=== PATIENT | female | born 1975 | race Caucasian/White ===

== ENCOUNTER 2019-01-22 18:24 | Emergency (ER) | payer OTHER ==
--- NOTE | 2019-01-22 18:57 | ER Document Report ---
ED Medical Screen (RME) - General Chief Complaint: Abnormal Lab Results Stated Complaint: ABNORMAL LABS Time Seen by Provider: 01/22/19 18:56 Primary Care Provider: AUDRA MALDONADO [Primary Care Provider] - Follow up as needed Mode of Arrival: Ambulatory Information source: Patient Notes: 42-year-old female presented to ED for abnormal hemoglobin. She states she went to the [facility] on Friday for a abscess under her left arm. She states that she was started on antibiotics but the doctor told her she got seen look pale and ordered blood work. She states the blood work was done today and the doctor's office called her and told her to come right to the ED that her hemoglobin was low. Patient is alert oriented respirations regular and unlabored speaking in full sentences walks with even steady gait. She is mildly pale. I have greeted and performed a rapid initial assessment of this patient. A comprehensive ED assessment and evaluation of the patient, analysis of test results and completion of medical decision making process will be conducted by an additional ED providers. Dictation of this chart was performed using voice recognition software; therefore, there may be some unintended grammatical errors. TRAVEL OUTSIDE OF THE [place] IN LAST 30 DAYS: No - Related Data Allergies/Adverse Reactions: No Known Allergies Allergy (Verified 01/22/19 18:49) Past Medical History Pulmonary Medical History: Denies: Hx Tuberculosis Neurological Medical History: Denies: Hx Seizures Psychiatric Medical History: Reports: Hx Depression Past Surgical History: Denies: Hx Pacemaker Physical Exam - Vital signs Vitals: Temp Pulse Resp BP Pulse Ox 99.3 F 92 16 131/60 H 98 01/22/19 18:52 01/22/19 18:52 01/22/19 18:52 01/22/19 18:52 01/22/19 18:52 Course - Vital Signs Vital signs: Temp Pulse Resp BP Pulse Ox 99.3 F 92 16 131/60 H 98 01/22/19 18:52 01/22/19 18:52 01/22/19 18:52 01/22/19 18:52 01/22/19 18:52 Doctor's Discharge - Discharge Referrals: AUDRA MALDONADO [Primary Care Provider] - Follow up as needed
[2019-01-22 19:27] LABS: ABSOLUTE BASOPHILS # (AUTO) 0.1 10^3/uL (0.0-0.2); ABSOLUTE EOSINOPHILS # (AUTO) 0.2 10^3/uL (0.0-0.6); ABSOLUTE LYMPHOCYTES (AUTO) 2.8 10^3/uL (0.5-4.7); ABSOLUTE MONOCYTES (AUTO) 0.7 10^3/uL (0.1-1.4); ABSOLUTE NEUT (AUTO) 5.8 10^3/uL (1.7-8.2); BASOPHILS % (AUTO) 1.1 % (0-2); EOSINOPHILS % (AUTO) 2.4 % (0-6); HEMATOCRIT 23.2 % (36.0-47.0); LYMPHOCYTES % (AUTO) 29.5 % (13-45); MEAN CORPUSCULAR HEMOGLOBIN 17.7 pg (27.0-33.4); MEAN CORPUSCULAR HGB CONC 29.3 g/dL (32.0-36.0); MEAN CORPUSCULAR VOLUME 60 fl (80-97); MONOCYTES % (AUTO) 7.2 % (3-13); PLATELET COUNT 736 10^3/uL (150-450); RED BLOOD COUNT 3.84 10^6/uL (3.72-5.28); RED CELL DISTRIBUTION WIDTH 20.7 % (11.5-14.0); SEGMENTED NEUTROPHILS % (AUTO) 59.8 % (42-78); TOTAL CELLS COUNTED % (AUTO) 100 %; WHITE BLOOD COUNT 9.6 10^3/uL (4.0-10.5)
[2019-01-22 19:34] LABS: HEMOGLOBIN 6.8 g/dL (12.0-15.5)
[2019-01-22 19:36] LABS: PLATELET COMMENT INCREASED
[2019-01-22 19:43] LABS: HYPOCHROMASIA 2+; POLYCHROMASIA SLIGHT
[2019-01-22 19:44] LABS: ANISOCYTOSIS 2+; OVALOCYTES SLIGHT; SCHISTOCYTES SLIGHT
[2019-01-22 19:45] LABS: ALANINE AMINOTRANSFERASE 21 U/L (9-52); ALBUMIN 4.3 g/dL (3.5-5.0); ALKALINE PHOSPHATASE 65 U/L (38-126); ANION GAP 8 (5-19); ASPARTATE AMINO TRANSFERASE 19 U/L (14-36); BILIRUBIN,DIRECT 0.2 mg/dL (0.0-0.4); BILIRUBIN,TOTAL 0.2 mg/dL (0.2-1.3); BLOOD UREA NITROGEN 16 mg/dL (7-20); CALCIUM 9.6 mg/dL (8.4-10.2); CARBON DIOXIDE 27 mmol/L (22-30); CHLORIDE 103 mmol/L (98-107); GLUCOSE 86 mg/dL (75-110); SODIUM 138.4 mmol/L (137-145); TOTAL PROTEIN 7.3 g/dL (6.3-8.2)
[2019-01-22] MEDS ORDERED: NORMAL SALINE 250 ML IV PRN (23:39)
[2019-01-22] MEDS ORDERED: FERROUS SULFATE 325 MG TABLET PO ONE (23:40)
--- NOTE | 2019-01-22 23:47 | ER Document Report ---
ED General - General Chief Complaint: Abnormal Lab Results Stated Complaint: ABNORMAL LABS Time Seen by Provider: 01/22/19 18:56 Primary Care Provider: [facility] [Primary Care Provider] - Follow up as needed Mode of Arrival: Ambulatory Notes: Patient is a 43-year-old female without chronic medical problems, does have a history of dysfunctional uterine bleeding, presents with concerns of anemia. Was seen by her primary care physician yesterday, had labs completed due to conc erns of anemia. Hemoglobin came back at 6.8, the patient was contacted by clinic and instructed to come to the emergency department for transfusion. The patient states that for many months she has felt fatigued, has low energy but denies any other acute symptoms. No exacerbating or alleviating factors. Denies any chest pain or shortness of breath. States that she typically bleeds for greater than 1 week on her periods and that her periods are quite heavy. Does not take anything to regulate her cycle. She is actively having vaginal bleeding at this time. She has never been on iron supplementation in the past. TRAVEL OUTSIDE OF THE [place] IN LAST 30 DAYS: No - HPI Patient complains to provider of: Anemia Onset: Other Onset/Duration: Constant Quality of pain: No pain Severity: None Pain Level: Denies Associated symptoms: None Exacerbated by: Denies Relieved by: Denies Similar symptoms previously: Yes Recently seen / treated by doctor: Yes - Related Data Allergies/Adverse Reactions: No Known Allergies Allergy (Verified 01/22/19 18:49) Past Medical History - General Information source: Patient - Social History Smoking Status: Never Smoker Chew tobacco use (# tins/day): No Frequency of alcohol use: None Drug Abuse: None Lives with: Spouse/Significant other Family History: Reviewed & Not Pertinent Patient has suicidal ideation: No Patient has homicidal ideation: No Pulmonary Medical History: Denies: Hx Tuberculosis Neurological Medical History: Denies: Hx Seizures Renal/ Medical History: Denies: Hx Peritoneal Dialysis Psychiatric Medical History: Reports: Hx Depression Past Surgical History: Reports: Hx Cholecystectomy. Denies: Hx Pacemaker Review of Systems - Review of Systems Notes: Constitutional: Negative for fever. Positive for fatigue HENT: Negative for sore throat. Eyes: Negative for visual changes. Cardiovascular: Negative for chest pain. Respiratory: Negative for shortness of breath. Gastrointestinal: Negative for abdominal pain, vomiting or diarrhea. Genitourinary: Negative for dysuria. Musculoskeletal: Negative for back pain. Skin: Negative for rash. Neurological: Negative for headaches, weakness or numbness. 10 point ROS negative except as marked above and in HPI. Physical Exam - Vital signs Vitals: Temp Pulse Resp BP Pulse Ox 99.3 F 92 16 131/60 H 98 01/22/19 18:52 01/22/19 18:52 01/22/19 18:52 01/22/19 18:52 01/22/19 18:52 Interpretation: Normal Notes: PHYSICAL EXAMINATION: GENERAL: Well-appearing, well-nourished and in no acute distress. HEAD: Atraumatic, normocephalic. EYES: Pupils equal round and reactive to light, extraocular movements intact, sclera anicteric, conjunctiva are normal. ENT: nares patent, oropharynx clear without exudates. Moist mucous membranes. NECK: Normal range of motion, supple without lymphadenopathy LUNGS: Breath sounds clear to auscultation bilaterally and equal. No wheezes rales or rhonchi. HEART: Regular rate and rhythm without murmurs ABDOMEN: Soft, nontender, normoactive bowel sounds. No guarding, no rebound. No masses appreciated. EXTREMITIES: Normal range of motion, no pitting or edema. No cyanosis. NEUROLOGICAL: No focal neurological deficits. Moves all extremities spontaneously and on command. PSYCH: Normal mood, normal affect. SKIN: Warm, Dry, diffuse pallor, normal turgor, no rashes or lesions noted. Course - Re-evaluation Re-evalutation: 01/22/19 23:42 Patient presents with generalized fatigue for many months, informed that she had anemia on routine labs obtained as an outpatient. This is a macrocytic anemia consistent with an iron deficiency anemia likely secondary to heavy menstrual cycles. The patient has gone through a consent process and understands the risk of blood transfusion in a nonemergent situation. Accepts these risks and would like to proceed with transfusion of 2 units of packed red blood cells. Will also initiate iron supplementation on as an outpatient basis. I have also advised that she should discuss with her ASSISTANT FOOTBALL COACH about terminating her cycles as this is a source of her iron deficiency anemia. After patient has received blood transfusion she will be discharged home. - Vital Signs Vital signs: Temp Pulse Resp BP Pulse Ox 99.3 F 92 16 131/60 H 98 01/22/19 18:52 01/22/19 18:52 01/22/19 18:52 01/22/19 18:52 01/22/19 18:52 - Laboratory Result Diagrams: 01/22/19 19:16 01/22/19 19:16 Laboratory results interpreted by me: 01/22/19 01/22/19 19:16 19:16 Hgb 6.8 L Hct 23.2 L MCV 60 L MCH 17.7 L MCHC 29.3 L RDW 20.7 H Plt Count 736 H Crossmatch See Detail Discharge - Discharge Clinical Impression: Dysmenorrhea Iron deficiency anemia Qualifiers: Iron deficiency anemia type: unspecified iron deficiency Qualified Code(s): D50.9 - Iron deficiency anemia, unspecified Condition: Good Disposition: HOME, SELF-CARE Additional Instructions: Please begin taking iron supplementation as prescribed. You have been given blood today to raise your blood levels. Please take a stool softener while taking Arava and septation iron supplementation to prevent constipation. I also recommend that you follow-up with your MARKETING PRODUCTION MANAGER for consideration of medical therapy to terminate your menstrual cycle as this is likely contributing heavily to your anemia. Return if you pass out, develop a fever greater than 101 F, have persistent vomiting, or have any other symptoms that are concerning to you. Please follow-up with your primary care doctor within the next 1 week. Referrals: [facility] [Primary Care Provider] - Follow up in 1 week
[2019-01-23 06:05] VITALS: BP 141/87
== END 2019-01-23 06:07 | disposition home or self-care (01) ==
LOC: ER 18:24
DX: N94.6 Dysmenorrhea, unspecified (principal); D50.9 Iron deficiency anemia, unspecified; Z90.49 Acquired absence of other specified parts of digestive tract
CPT/HCPCS: 99282; 86900; 86901; 36415; 36430; 86850; 84703; 86920; P9016

== ENCOUNTER → 2019-01-22 | Outpatient (CLI) | payer OTHER ==
[2019-01-22 10:05] LABS: ABSOLUTE BASOPHILS # (AUTO) 0.1 10^3/uL (0.0-0.2); ABSOLUTE EOSINOPHILS # (AUTO) 0.2 10^3/uL (0.0-0.6); ABSOLUTE LYMPHOCYTES (AUTO) 2.6 10^3/uL (0.5-4.7); ABSOLUTE MONOCYTES (AUTO) 0.6 10^3/uL (0.1-1.4); ABSOLUTE NEUT (AUTO) 7.5 10^3/uL (1.7-8.2); BASOPHILS % (AUTO) 0.7 % (0-2); EOSINOPHILS % (AUTO) 2.1 % (0-6); HEMATOCRIT 23.5 % (36.0-47.0); LYMPHOCYTES % (AUTO) 23.4 % (13-45); MEAN CORPUSCULAR HEMOGLOBIN 17.3 pg (27.0-33.4); MEAN CORPUSCULAR HGB CONC 28.8 g/dL (32.0-36.0); MONOCYTES % (AUTO) 5.3 % (3-13); PLATELET COUNT 707 10^3/uL (150-450); RED BLOOD COUNT 3.91 10^6/uL (3.72-5.28); RED CELL DISTRIBUTION WIDTH 20.9 % (11.5-14.0); SEGMENTED NEUTROPHILS % (AUTO) 68.5 % (42-78); TOTAL CELLS COUNTED % (AUTO) 100 %
[2019-01-22 10:30] LABS: ALANINE AMINOTRANSFERASE 18 U/L (9-52); ALBUMIN 4.3 g/dL (3.5-5.0); ALKALINE PHOSPHATASE 70 U/L (38-126); ANION GAP 11 (5-19); ASPARTATE AMINO TRANSFERASE 23 U/L (14-36); BLOOD UREA NITROGEN 17 mg/dL (7-20); CARBON DIOXIDE 24 mmol/L (22-30); CHLORIDE 104 mmol/L (98-107); CHOLESTEROL 138.52 mg/dL (0-200); GLUCOSE 101 mg/dL (75-110); POTASSIUM 4.5 mmol/L (3.6-5.0); SODIUM 139.2 mmol/L (137-145); TOTAL PROTEIN 7.3 g/dL (6.3-8.2); TRIGLYCERIDES 87 mg/dL (<150)
[2019-01-22 10:33] LABS: HEMOGLOBIN 6.8 g/dL (12.0-15.5)
[2019-01-22 10:34] LABS: BILIRUBIN,TOTAL 0.5 mg/dL (0.2-1.3); MEAN CORPUSCULAR VOLUME 60 fl (80-97)
[2019-01-22 10:35] LABS: ANISOCYTOSIS 2+
[2019-01-22 10:36] LABS: PLATELET COMMENT INCREASED
[2019-01-22 10:37] LABS: OVALOCYTES 1+; POIKILOCYTOSIS 1+; POLYCHROMASIA SLIGHT
[2019-01-22 10:41] LABS: DIRECT LDL 68 mg/dL (<100)
[2019-01-22 10:45] LABS: BILIRUBIN,DIRECT 0.3 mg/dL (0.0-0.4)
[2019-01-25 15:26] LABS: PATH REVIEW PATHOLOGIST REVIEWED
== END ==
LOC: OD 08:59
DX: Z00.00 Encounter for general adult medical examination without abnormal findings (principal)
CPT/HCPCS: 36415; 80053; 80061; 83036; 84443; 85025

== ENCOUNTER → 2019-02-09 | Outpatient (CLI) | payer OTHER ==
--- NOTE | 2019-02-09 14:56 | WOMENS IMAGING REPORT ---
EXAM DESCRIPTION: BILAT SCREENING MAMMO W/CAD COMPLETED DATE/TIME: 02/09/2019 1:30 pm REASON FOR STUDY: Z12.31 ENCOUNTER FOR SCREENING MAMMOGRAM FOR MALIGNANT NEOPLASM OF NNEIEAR66.31 E NCNTR SCREEN MAMMOGRAM FOR MALIGNANT NEOPLASM OF ONEAL COMPARISON: None. EXAM PARAMETERS: Standard craniocaudal and mediolateral oblique views of each breast recorded using digital acquisition. Read with the assistance of CAD. .FORM[facility]LY [facility], [facility] - The Online [address] [employer] Version 9.2 LIMITATIONS: None. FINDINGS: RIGHT BREAST MASSES: No suspicious masses. CALCIFICATIONS: No new or suspicious calcifications. ARCHITECTURAL DISTORTION: None. DEVELOPING DENSITY: None. ASYMMETRY: None noted. OTHER: No other significant findings. LEFT BREAST MASSES: No suspicious masses. CALCIFICATIONS: No new or suspicious calcifications. ARCHITECTURAL DISTORTION: None. DEVELOPING DENSITY: None. ASYMMETRY: Upper outer quadrant 8 cm deep to the nipple. OTHER: No other significant findings. IMPRESSION: Asymmetry left breast. 0 Incomplete: Needs Additional Imaging Evaluation and/or prior Mammograms for Comparison. BREAST DENSITY: b. There are scattered areas of fibroglandular density. BIRAD: ASSESSMENT: 0 Incomplete: Needs Additional Imaging Evaluation and/or prior Mammograms for C omparison. RECOMMENDATION: RECOMMENDED FOLLOW-UP: Cone compression views and potential ultrasound left breast. The patient will be contacted for additional imaging. COMMENT: The patient has been notified of the results by letter per MQSA requirements. Additional no tification policies are in place for contacting patient with suspicious or incomplete findings. Quality ID #225: The [employer] [place] [employer] recommends an annual screening mammogram for women aged 40 years or over. This facility utilizes a reminder system to ensure that all patients receive reminder letters, and/or direct phone calls for appointments. This includes reminders for routine scr eening mammograms, diagnostic mammograms, or other Breast Imaging Interventions when appropriate. Th is patient will be placed in the appropriate reminder system. TECHNICAL DOCUMENTATION: FINDING NUMBER: (1) ASSESSMENT: (1) JOB ID: [id number] [employer]- All Rights Reserved Reading location - IP/workstation name: [email or web address]
== END ==
LOC: WI 13:07
DX: Z12.31 Encounter for screening mammogram for malignant neoplasm of breast (principal); N64.89 Other specified disorders of breast
CPT/HCPCS: 77067

== ENCOUNTER → 2019-02-16 | Outpatient (CLI) | payer OTHER ==
--- NOTE | 2019-02-16 14:35 | WOMENS IMAGING REPORT ---
EXAM DESCRIPTION: LEFT DIAGNOSTIC MAMMO W/CAD COMPLETED DATE/TIME: 02/16/2019 10:53 am REASON FOR STUDY: N63.21 UNSPECIFIED LUMP IN THE LEFT BREAST,UPPER OUTER QUADRANT R92.2 INCONCLUSIV E MAMMOGRAM COMPARISON: 02/09/2019 EXAM PARAMETERS: Spot compression X CC and MLO. True lateral non spot compressed. Targeted left breast ultrasound. LIMITATIONS: None. FINDINGS: BREAST LATERALITY: Left MASSES: No suspicious masses. CALCIFICATIONS: No new or suspicious calcifications. ARCHITECTURAL DISTORTION: None. DEVELOPING DENSITY: None. ASYMMETRY: Persistent upper outer quadrant asymmetry without definable mass. This tissue is consider ably asymmetric compared to the opposite side on recent screening mammograms. Some of the images sug gest slight distortion. Faint calcifications. See ultrasound. OTHER: No other significant findings. Ultrasound: Echogenic regional tissue, difficult to define a knee dominant mass. At approximately 1 -2 o'clock, there is a possible abnormal lymph node measuring 7 mm. IMPRESSION: 1. Further diagnostic mammography and ultrasound do not clear the region of interest. There is irreg ular tissue which is not clearly dense fibroglandular tissue and a possible abnormal lymph node close to the region of interest. Further evaluation with MRI of the bilateral breasts is recommended. BREAST DENSITY: c. The breasts are heterogeneously dense, which may obscure small masses. BIRAD: ASSESSMENT: 0 Incomplete: Needs additional imaging evaluation and/or prior mammograms for co mparison. RECOMMENDATION: RECOMMENDED FOLLOW UP: Bilateral breast MRI without and with contrast. COMMENT: The patient has been notified of the results by letter per [place] requirements. Additional no tification policies are in place for contacting patient with suspicious or incomplete findings. Quality ID #225: The [employer] [employer] recommends an annual screening mammogram for women aged 40 years or over. This facility utilizes a reminder system to ensure that all patients receive reminder letters, and/or direct phone calls for appointments. This includes reminders for routine scr eening mammograms, diagnostic mammograms, or other Breast Imaging Interventions when appropriate. Th is patient will be placed in the appropriate reminder system. TECHNICAL DOCUMENTATION: FINDING NUMBER: (1) ASSESSMENT: (1) JOB ID: [id number] [employer]- All Rights Reserved Reading location - IP/workstation name: [email or web address]
--- NOTE | 2019-02-16 17:19 | WOMENS IMAGING REPORT ---
EXAM DESCRIPTION: U/S BREAST UNILAT LIMITED COMPLETED DATE/TIME: 02/16/2019 12:39 pm REASON FOR STUDY: LT BREAST N63.21 R92.2 INCONCLUSIVE MAMMOGRAM COMPARISON: None. LIMITATIONS: None. FINDINGS: Please see correlative diagnostic mammography report from the same date for full findings. IMPRESSION: Please see correlative diagnostic mammography report from the same date for full finding s. TECHNICAL DOCUMENTATION: JOB ID: [id number] [employer]- All Rights Reserved Reading location - IP/workstation name: [email or web address]
== END ==
LOC: WI 10:25
DX: N63.21 Unspecified lump in the left breast, upper outer quadrant (principal)
CPT/HCPCS: 76642

== ENCOUNTER → 2019-02-22 | Outpatient (CLI) | payer OTHER ==
--- NOTE | 2019-02-22 11:19 | WOMENS IMAGING REPORT ---
EXAM DESCRIPTION: U/S PELVIS NON-OB; TRANSVAGINAL ULTRASOUND COMPLETED DATE/TIME: 02/22/2019 10:34 am REASON FOR STUDY: N93.8 OTHER SPECIFIED ABNORMAL UTERINE AND VAGINAL BLEEDING, N93.8 OTHER SPECIFIE D ABNORMAL UTERINE AND VAGINAL BLEEDING COMPARISON: None. TECHNIQUE: Dynamic and static grayscale images acquired of the pelvis via transabdominal approach an d recorded on PACS. Additional selected color Doppler and spectral images recorded. LIMITATIONS: None. FINDINGS: UTERUS: Markedly enlarged. Lobular. At least 1 large fibroid. Suspect additional. ENDOMETRIAL STRIPE: Displaced by fibroid. CERVIX: No nabothian cysts. RIGHT OVARY AND DOPPLER: Normal size. No worrisome masses. Normal arterial vascular flow without evid ence for torsion. Simple cyst measures 3.5 x 4 x 4.1 cm LEFT OVARY AND DOPPLER: Ovary not visualized. FREE FLUID: None OTHER: No other significant finding. MEASUREMENTS: UTERUS: 18.6 x 11.6 x 12.5 cm ENDOMETRIAL STRIPE: Not visualize RIGHT OVARY: 4.2 x 2.8 x 3.8 cm LEFT OVARY: Not visualized. IMPRESSION: Markedly enlarged uterus with at least 1 large fibroid. Suspect additional. Simple cysts right ovary measures 4.1 cm. COMMENT: Followup of asymptomatic benign ovarian cysts detected by ultrasound in POSTMENOPAUSAL pat ients Simple cyst >1 and ? 7 cm: yearly followup ultrasound *Note: If cyst is clinically symptomatic or otherwise concerning, other followup may be warranted. Menopause is considered age 50 by radiologist unless age of last period is known. Based on recommenda tions of the Society for Radiologists in Ultrasound Consensus Conference Statement 2010 on management of asymptomatic ovarian and other adnexal cysts imaged at ultrasound. TECHNICAL DOCUMENTATION: JOB ID: [id number] [employer]- All Rights Reserved Rev Reading location - IP/workstation name: [email or web address]
== END ==
LOC: WI 02-12 06:52
DX: D25.9 Leiomyoma of uterus, unspecified (principal); N83.291 Other ovarian cyst, right side; N93.8 Other specified abnormal uterine and vaginal bleeding
CPT/HCPCS: 76830; 76856

== ENCOUNTER → 2019-03-18 | Outpatient (CLI) | payer OTHER | LOC: RAD 11:46 | PROVIDERS: ATTEND Internal Medicine | DX: N63.20 Unspecified lump in the left breast, unspecified quadrant (principal); Z53.8 Procedure and treatment not carried out for other reasons ==

== ENCOUNTER → 2019-05-13 | Outpatient (CLI) | payer OTHER | LOC: RAD 11:55 | PROVIDERS: ATTEND Internal Medicine | DX: N63.20 Unspecified lump in the left breast, unspecified quadrant (principal) | CPT/HCPCS: 77049; A9576 ==

== ENCOUNTER → 2019-06-15 | Outpatient (CLI) | payer OTHER ==
[2019-06-15 14:24] LABS: ABSOLUTE EOSINOPHILS # (AUTO) 0.2 10^3/uL (0.0-0.6); ABSOLUTE LYMPHOCYTES (AUTO) 2.2 10^3/uL (0.5-4.7); ABSOLUTE MONOCYTES (AUTO) 0.5 10^3/uL (0.1-1.4); ABSOLUTE NEUT (AUTO) 6.4 10^3/uL (1.7-8.2); BASOPHILS % (AUTO) 0.4 % (0-2); EOSINOPHILS % (AUTO) 1.8 % (0-6); HEMATOCRIT 37.8 % (36.0-47.0); HEMOGLOBIN 12.8 g/dL (12.0-15.5); LYMPHOCYTES % (AUTO) 23.7 % (13-45); MEAN CORPUSCULAR HEMOGLOBIN 31.3 pg (27.0-33.4); MEAN CORPUSCULAR VOLUME 92 fl (80-97); MONOCYTES % (AUTO) 5.7 % (3-13); PLATELET COUNT 429 10^3/uL (150-450); RED BLOOD COUNT 4.11 10^6/uL (3.72-5.28); RED CELL DISTRIBUTION WIDTH 14.5 % (11.5-14.0); SEGMENTED NEUTROPHILS % (AUTO) 68.4 % (42-78); TOTAL CELLS COUNTED % (AUTO) 100 %; WHITE BLOOD COUNT 9.3 10^3/uL (4.0-10.5)
== END ==
LOC: CCC 12:24
DX: D50.9 Iron deficiency anemia, unspecified (principal)
CPT/HCPCS: 36415; 85025

== ENCOUNTER 2020-05-16 10:58 | Emergency (ER) | payer SELFPAY ==
[2020-05-16 11:07] VITALS: BP 141/77
[2020-05-16] MEDS ORDERED: TETRACAINE HCL 0.5% OPH SOLN 4 ML OU ONE (11:42)
--- NOTE | 2020-05-16 11:54 | ER Document Report ---
ED Medical Screen (RME) - General Chief Complaint: Facial Swelling Stated Complaint: FACIAL SWELLING Time Seen by Provider: 05/16/20 11:35 Primary Care Provider: [facility] [Primary Care Provider] - Follow up as needed TRAVEL OUTSIDE OF THE [place] IN LAST 30 DAYS: No - HPI Notes: 05/16/20 11:43 45-year-old female presents emergency room with left facial swelling that started 4 days ago. patient states that she thinks it is related to her by a stuffed animal from the store and she put her face against it. Patient states she started with a rash after touching stuffed animal. Reports she has itching pain reports some burning. Tried topical Benadryl cream with partial relief. She did not want to ingest any Benadryl because she was afraid that she would get tired while she was working. Reports she did have a partial hysterectomy done this past winter. Denies any fevers or chills, blurred vision, double vision, loss of vision. I have greeted and performed a rapid initial assessment of this patient. A comprehensive ED assessment and evaluation of the patient, analysis of test results and completion of the medical decision making process will be conducted by additional ED providers. PHYSICAL EXAMINATION: GENERAL: Well-appearing, well-nourished and in no acute distress. HEAD: Atraumatic, normocephalic. EYES: Left sclera white without any erythema left lower orbital with edema slight ecchymosis, noted rash to left forehead that does appear to extend into his scalp ranging between scabs to small pustular filled vesicles. Noted scabs rash on upper left eyelid NEUROLOGICAL: Normal speech, normal gait. SKIN: Warm, Dry, normal turgor, no rashes or lesions noted. see eye note Patient does need a thorough eye examination and possible stat consult with ophthalmology - Related Data Allergies/Adverse Reactions: No Known Allergies Allergy (Verified 05/16/20 11:34) Home Medications: ALLERGY Past Medical History - Social History Chew tobacco use (# tins/day): No Frequency of alcohol use: None Drug Abuse: None Pulmonary Medical History: Denies: Hx Tuberculosis Neurological Medical History: Denies: Hx Seizures Renal/ Medical History: Denies: Hx Peritoneal Dialysis Psychiatric Medical History: Reports: Hx Depression Past Surgical History: Reports: Hx Cholecystectomy. Denies: Hx Pacemaker Physical Exam - Vital signs Vitals: Temp Pulse Resp BP Pulse Ox 98.2 F 101 H 16 141/77 H 97 05/16/20 11:04 05/16/20 11:04 05/16/20 11:04 05/16/20 11:04 05/16/20 11:04 Course - Vital Signs Vital signs: Temp Pulse Resp BP Pulse Ox 98.2 F 101 H 16 141/77 H 97 05/16/20 11:35 05/16/20 11:04 05/16/20 11:04 05/16/20 11:04 05/16/20 11:04 Doctor's Discharge - Discharge [facility]errals: [facility] [Primary Care Provider] - Follow up as needed
--- NOTE | 2020-05-16 14:30 | ER Document Report ---
ED General - General Chief Complaint: Facial Swelling Stated Complaint: FACIAL SWELLING Time Seen by Provider: 05/16/20 11:35 Primary Care Provider: [facility] [NO LOCAL MD] - Follow up as needed Mode of Arrival: Ambulatory Information source: Patient Notes: Patient is a 45-year-old female coming in today with irritation and swelling of the left side of her face and irritation of the left eye. States 4 days ago symptoms began. She was concerned that she was possibly having a reaction to a stuffed animal from a store that she put up to her face. The left side of her forehead and around her left eye is swollen and with scabs appearing. TRAVEL OUTSIDE OF THE [place] IN LAST 30 DAYS: No - Related Data Allergies/Adverse Reactions: No Known Allergies Allergy (Verified 05/16/20 11:34) Home Medications: ALLERGY Past Medical History - Social History Smoking Status: Never Smoker Chew tobacco use (# tins/day): No Frequency of alcohol use: None Drug Abuse: None Family History: Reviewed & Not Pertinent Patient has homicidal ideation: No Pulmonary Medical History: Denies: Hx Tuberculosis Neurological Medical History: Denies: Hx Seizures Renal/ Medical History: Denies: Hx Peritoneal Dialysis Psychiatric Medical History: Reports: Hx Depression Past Surgical History: Reports: Hx Cholecystectomy. Denies: Hx Pacemaker Review of Systems - Review of Systems Notes: Constitutional: No fevers. No chills. EENT: Positive left-sided facial swelling, rash to left side of face, left eye redness Cardiovascular: No chest pain. No palpitations. Respiratory: No cough. No shortness of breath. No respiratory distress. Gastrointestinal: No abdominal pain. No nausea, vomiting, or diarrhea. Genitourinary: Atraumatic. No lesions. No pain. No discharge. Musculoskeletal: Atraumatic. No swelling. No deformities. Skin: + rash to left forehead Lymphatic: No swollen lymph nodes. Neurologic: No headache. No syncope. Psychiatric: No suicidal or homicidal ideation. Physical Exam - Vital signs Vitals: Temp Pulse Resp BP Pulse Ox 98.2 F 101 H 16 141/77 H 97 05/16/20 11:04 05/16/20 11:04 05/16/20 11:04 05/16/20 11:04 05/16/20 11:04 - Notes Notes: General: Well-developed, well-nourished. In no acute distress. Non-toxic appearing. Cardiac: Well-perfused. Regular rate and rhythm. No murmurs, rubs, or gallops. Pulmonary: No respiratory distress. No cyanosis. Bilateral lung chavez are clear to auscultation. Abdominal: Non-distended. Non-rigid. Bowels sounds are present in all four quadrants. No guarding or rebound. HEENT: The left forehead and left periorbit is swollen and erythematous. There is a dried vesicular rash to the left forehead, left anterior scalp noted. The globe of the left eye is injected and tearing. IOP-23. left conjunctiva is 1+ injected and watery. fluorescein stain reveals no corneal abnormalities. upper lid is everted and no fb. Neck: Supple. No adenopathy. No meningismus. Dermatologic: Warm with good turgor. No rash. Atraumatic. Chest: Atraumatic. No chest wall tenderness to palpation. Musculoskeletal: Moves all extremities well. No range of motion deficits. no muscular or joint tenderness. No paraspinal muscle tenderness. no midline spinal tenderness or step-off. Genitourinary: Examination deferred Neurologic: No gross neurologic deficits. Psychiatric: Normal mood. Course - Re-evaluation Re-evalutation: 05/16/20 14:56 Patient has 20/25 vision in the left eye and 20/20 in the right eye. There are no dendritic lesions seen. We will start the patient on tobramycin eyedrops to prevent secondary bacterial infection. We will start acyclovir 800 mg 5 times a day for 7 days. I spoke with Dr. Judd's office who will get her in at 7:45 in the morning for comprehensive eye exam. - Vital Signs Vital signs: Temp Pulse Resp BP Pulse Ox 98.2 F 101 H 16 141/77 H 97 05/16/20 11:35 05/16/20 11:04 05/16/20 11:04 05/16/20 11:04 05/16/20 11:04 Discharge - Discharge Clinical Impression: Varicella zoster Conjunctivitis Qualifiers: Conjunctivitis type: acute Acute conjunctivitis type: viral Laterality: left Qualified Code(s): B30.9 - Viral conjunctivitis, unspecified Condition: Good Disposition: HOME, SELF-CARE Instructions: Shingles ([facility]), Conjunctivitis ([facility]) Additional Instructions: You are instructed to be at Dr. Judd's office by 7:45 in the morning for repeat eye exam. Start antibiotic eyedrops. Start antiviral medication. Prescriptions: Tobramycin [Tobrex] 1 drop OP Q4H #1 bottle Acyclovir [Zovirax 800 mg Tablet] 800 mg PO 5XD #50 tab Referrals: MAGAD JUDD MD [ACTIVE STAFF] - Follow up tomorrow
== END 2020-05-16 15:17 | disposition home or self-care (01) ==
LOC: ER 10:58
DX: B01.9 Varicella without complication (principal); B30.9 Viral conjunctivitis, unspecified; R22.0 Localized swelling, mass and lump, head
CPT/HCPCS: 99283; J3490